=== PATIENT | female | born 1945 | race Two or more races ===

== ENCOUNTER → 2019-04-18 | Outpatient (CLI) | payer OTHER | END | disposition home or self-care (01) | LOC: MRI 12:34 | DX: R41.1 Anterograde amnesia (principal) | CPT/HCPCS: 70551 ==

== ENCOUNTER 2019-07-23 08:27 | Outpatient (CLI) | payer OTHER | END 2019-07-23 08:30 | disposition home or self-care (01) | LOC: SONOGRAMA 08:27 → MAMO-SONO 08:45 | DX: K76.0 Fatty (change of) liver, not elsewhere classified (principal) ==

== ENCOUNTER → 2019-10-20 | Outpatient (CLI) | payer OTHER | END | disposition home or self-care (01) | LOC: MAMO-SONO 08:15 | DX: K76.0 Fatty (change of) liver, not elsewhere classified (principal) ==

== ENCOUNTER 2019-12-23 11:54 | Outpatient (CLI) | payer OTHER | END 2019-12-23 11:55 | disposition home or self-care (01) | LOC: MAMO-SONO 11:54 | DX: Z12.31 Encounter for screening mammogram for malignant neoplasm of breast (principal); Z87.898 Personal history of other specified conditions; N64.4 Mastodynia; N63.10 Unspecified lump in the right breast, unspecified quadrant; N63.20 Unspecified lump in the left breast, unspecified quadrant ==

== ENCOUNTER 2020-05-28 09:36 | Outpatient (CLI) | payer OTHER | END 2020-05-28 10:32 | disposition home or self-care (01) | LOC: MRI 09:36 | DX: R51 Headache (principal) | CPT/HCPCS: 70551 ==

== ENCOUNTER 2020-11-16 11:20 | Emergency (ER) | payer OTHER ==
[~2020-11-16] VITALS: Ht 152.4 cm; Wt 51.7 kg
[2020-11-16] MEDS ORDERED: LEVO-T50 MCG (11:47)
[2020-11-16] MEDS ORDERED: TOPROL XL25 M1 (11:48)
[2020-11-16] MEDS ORDERED: ELIQUIS5 M1 (11:48)
[2020-11-16] MEDS ORDERED: ORPHENADRINE C100 MG PO (16:30)
[2020-11-16] MEDS ORDERED: CELECOXIB100 MG PO (16:30)
[2020-11-16] MEDS ORDERED: VOLTAREN100 GM TOP (16:30)
== END 2020-11-16 16:53 | disposition home or self-care (01) ==
LOC: ER 11:20
DX: S13.8XXA Sprain of joints and ligaments of other parts of neck, initial encounter (principal); S00.12XA Contusion of left eyelid and periocular area, initial encounter; S00.83XA Contusion of other part of head, initial encounter; W06.XXXA Fall from bed, initial encounter; Y93.89 Activity, other specified; Y92.018 Other place in single-family (private) house as the place of occurrence of the external cause; Y99.8 Other external cause status

== ENCOUNTER 2023-12-28 10:36 | Outpatient (CLI) | payer OTHER ==
[~2023-12-28 10:36] MED LIST: CELECOXIB100 MG PO; ELIQUIS5 M1; LEVO-T50 MCG; ORPHENADRINE C100 MG PO; TOPROL XL25 M1; VOLTAREN100 GM TOP
== END 2023-12-28 10:43 | disposition home or self-care (01) ==
LOC: TOM 10:36
PROVIDERS: ATTEND General Practice
DX: R42 Dizziness and giddiness (principal)